=== PATIENT | male | born 1950 | race Caucasian/White ===

== ENCOUNTER → 2024-06-27 | Outpatient (CLI) | payer MEDICARE ==
[~2024-06-27] MED LIST: ASPIRIN 32325 MG/TAB PO; BUFFERED ASPIR325 M2; CARVEDILOL; COREG 25MG25 MG/TAB PO; HCTZ 25MG TAB25 MG PO; IMDUR 60MG60 MG/TAB; KLONOPIN WAFE0.25 MG; LASIX 20MG TABL20 MG PO; LIPITOR 40MG TA40 MG PO; LISINOPRIL20 MG PO; NITROSTAT0.4 MG/TAB SL; OMEGA 31000 MG; ZESTRIL40 MG PO; [UNRECOGNIZED DRUG - OTHER]
== END ==
LOC: COL.RAD 15:36
DX: I70.1 Atherosclerosis of renal artery (principal); N18.32 Chronic kidney disease, stage 3b